=== PATIENT | female | born 1990 | race Caucasian/White ===

== ENCOUNTER 2018-06-26 13:58 | Emergency (ER) | payer OTHER ==
[~2018-06-26] VITALS: Ht 170.2 cm; Wt 113.4 kg
[2018-06-26] MEDS ORDERED: KETOROLAC TROMETHAMINE 60 MG/2 ML VIAL IM ONE (14:45)
--- NOTE | 2018-06-26 15:36 | Diagnostic Imaging Report ---
Exam: Right foot radiographs, 3 views. Comparison: None. Findings: There is normal bone mineralization. No evidence of acute fracture or malalignment. Joint spaces are preserved. The Lisfranc alignment is maintained. There is a large plantar calcaneal spur. An accessory navicular is noted. Impression: No evidence of fracture or malalignment. Accessory navicular is noted, which can be normal variant. Correlation with point tenderness in the medial hindfoot is suggested. Large plantar calcaneal spur. Signed by: Dr. Sola Tate MD on 06/26/2018 3:33 PM
[2018-06-26 16:39] VITALS: BP 118/82
== END 2018-06-26 16:25 | disposition home or self-care (01) ==
LOC: ER 13:58
DX: S90.31XA Contusion of right foot, initial encounter (principal); X58.XXXA Exposure to other specified factors, initial encounter; Y92.009 Unspecified place in unspecified non-institutional (private) residence as the place of occurrence of the external cause; M77.31 Calcaneal spur, right foot
CPT/HCPCS: 73630; 99283; J1885